=== PATIENT | female | born 1990 | race American Indian/Alaskan Native ===

== ENCOUNTER 2018-09-08 22:42 | Emergency (ER) | payer SELFPAY ==
[~2018-09-08] VITALS: Ht 162.6 cm; Wt 77.3 kg
[2018-09-08 22:53] VITALS: BP 125/81; TEMP 99.7
[2018-09-08] MEDS ORDERED: CIPRO 500MG TA500 MG PO (23:26)
[2018-09-08] MEDS ORDERED: CIPRO HC OTIC S10 ML OT (23:26)
[2018-09-08 23:38] VITALS: PULSE 100
== END 2018-09-08 23:38 | disposition home or self-care (01) ==
LOC: COL.ER 22:42
DX: H92.02 Otalgia, left ear (principal); H60.12 Cellulitis of left external ear